=== PATIENT | male | born 1990 | race Two or more races ===

== ENCOUNTER 2024-04-01 16:58 | Emergency (ER) | payer OTHER ==
[~2024-04-01] VITALS: Ht 170.2 cm; Wt 68.9 kg
[2024-04-01] MEDS ORDERED: DEXAMETHASONE SODIUM PHOSPHATE 4 MG/ML VIAL IM STA (17:28)
[2024-04-01] MEDS ORDERED: ORPHENADRINE CITRATE 30 MG/ML AMPUL IM STA (17:29)
[2024-04-01] MEDS ORDERED: NORFLEX100MG PO (19:10)
== END 2024-04-01 19:34 | disposition home or self-care (01) ==
LOC: ER 17:00
DX: M62.838 Other muscle spasm (principal); Z91.018 Allergy to other foods
CPT/HCPCS: 96365; 99282; J1100; J2360